=== PATIENT | female | born 1970 | race Caucasian/White ===

== ENCOUNTER 2019-04-24 11:21 | Emergency (ER) | payer OTHER ==
[2019-04-24 12:26] VITALS: BP 113/79
--- NOTE | 2019-04-24 13:08 | UC ---
Ear Complaint HPI - HPI Summary HPI Summary: 48 y/o female presents to the urgent care c/o Left eye crusting, erythema, itching, irritation, and pain for two days. Yesterday, went to [facility], was diagnosed with conjunctivitis, and started on Polytrim Eye Drops. Left ear pain, left TMJ pain, left maxillary pain, left eye pain, nasal discharge, and right eye symptoms started yesterday and she started using drops in the right eye as well. Does wear contact lenses but has not worn them since diagnosis. Patient is anxious and tearful because she started a new job three days ago, was sent home due to pink eye, and needs a note for yesterday and today as well. Verborrhea. - History of Current Complaint Chief Complaint: UCGeneralIllness Stated Complaint: LEFT EYE/EAR Time Seen by Provider: 04/24/19 12:57 Hx Obtained From: Patient Onset/Duration: Gradual Onset, Lasting Days - 10 days of intermittenr nasal congestion and discharge, Still Present, Worse Since - 3 days ago w/ left eye redness and drainage and sinus pain radiating tot he left ear Severity Initially: Mild Severity Currently: Moderate Pain Intensity: 5 Pain Scale Used: 0-10 Numeric Alleviating Factors: OTC Meds Associated Signs/Symptoms: Positive: URI Symptoms - Allergies/Home Medications Allergies/Adverse Reactions: Allergies Allergy/AdvReac Type Severity Reaction Status Date / Time No Known Allergies Allergy Verified 04/24/19 12:20 Home Medications: Home Medications LORazepam TAB(*) [Ativan 0.5 MG TAB (*)] 0.5 mg PO DAILY PRN 04/24/19 [History Confirmed 04/24/19] Tobramycin/Dexameth OPTH.SUSP* [Tobradex 0.3-0.1%*] 1 drop LEFT EYE QID [History Confirmed 04/24/19] carBAMazepine ER TAB(*) [Tegretol Xr TAB(*)] 100 mg PO BEDTIME 04/24/19 [ History Confirmed 04/24/19] PMH/Surg Hx/FS Hx/Imm Hx - Surgical History Surgical History: Yes Surgery Procedure, Year, and Place: Right Radius and Ulna Fracture Repair, ~1985 , [place] - Social History Alcohol Use: None Substance Use Type: None Smoking Status (MU): Never Smoked Tobacco Physical Exam Vital Signs: Initial Vital Signs Temp 97.6 F 04/24/19 12:14 Pulse 72 04/24/19 12:14 Resp 16 04/24/19 12:14 BP 113/79 04/24/19 12:14 Pulse Ox 100 04/24/19 12:14 Ear Complaint Course/Dx - Differential Dx/Diagnosis Differential Diagnosis/HQI/PQRI: Cerumen Impaction, Otitis Externa, Otitis Media , URI, Other - sinusitis Provider Diagnosis: Acute conjunctivitis, left eye, Acute bacterial sinusitis Discharge ED - Sign-Out/Discharge Documenting (check all that apply): Patient Departure - D/C home All imaging exams completed and their final reports reviewed: No Studies - Discharge Plan Condition: Stable Disposition: HOME Patient Education Materials: Conjunctivitis (ED), Sinusitis (ED) Forms: *Work Release Referrals: Piedad Morales MD [Primary Care Provider] - 2 Days Additional Instructions: 1- Please increase fluid intake and rest. take full course of antibiotics to avoid resistance. Take yogurts w/ probiotics or Culturelle to protect your GI system 2-Use Flonase as directed to help drain fluid. Also buy saline drops to clear sinuses 3-Please Continue applying Tobramycin ophthalmic drops as directed before. apply tea compresses as directed to decrease swelling. Do no wear contact lenses until symp[toms resolve. If not imp[rovement please f/u w/ OPthlamologist DR Morgan in 3 days for further management. 4-Please f/u w/ your PCP in 3 days if symptoms do not improve for further management and treatment - Billing Disposition and Condition Condition: STABLE Disposition: Home
== END 2019-04-24 13:29 | disposition home or self-care (01) ==
LOC: UCCORT 11:21
DX: H10.32 Unspecified acute conjunctivitis, left eye (principal); J32.9 Chronic sinusitis, unspecified; B96.89 Other specified bacterial agents as the cause of diseases classified elsewhere
CPT/HCPCS: 99212; G0463